=== PATIENT | female | born 1965 | race Caucasian/White ===

== ENCOUNTER 2022-05-19 09:28 | Inpatient (IN) | payer BC, OTHER ==
[~2022-05-19] VITALS: Ht 147.3 cm; Wt 67.6 kg
--- NOTE | 2022-05-19 01:21 | NUR ---
JAMAICAN SPEAKING PATIENT AOX4. NO COMPLAINTS OF PAIN AT THIS TIME. ROOM AIR. STABLE NURSING WILL MONITOR FOR CHANGES. CALL LIGHT WITHIN REACH BED AT LOWEST POSITION. [id number]
[~2022-05-19 09:28] MED LIST: VAS10 PO; [UNRECOGNIZED DRUG - CODE] PO
[2022-05-19 09:42] VITALS: BP 205/125
--- NOTE | 2022-05-19 09:50 | NUR ---
PT BACK TO LOBBY, NO OPEN ROOMS, REPORTS HX OF HTN, DOES NOT TAKE ANY MEDS
[2022-05-19] MEDS ORDERED: hydrALAZINE 10 MG TAB PO ONE (10:40)
[2022-05-19] MEDS ORDERED: ACETAMINOPHEN 325 MG TAB PO ONE (10:40)
[2022-05-19] MEDS ORDERED: CLONIDINE HYDROCHLORIDE 0.1 MG TAB PO ONE (10:40)
[2022-05-19] MEDS ORDERED: NACL 0.9% 1,000 ML IV SCH (10:40)
[2022-05-19 11:01] LABS: APPEARANCE,URINE CLEAR (CLEAR); BILIRUBIN,URINE NEGATIVE (NEGATIVE); BLOOD, URINE TRACE-I (NEGATIVE); COLOR,URINE YELLOW (YELLOW); LEUKOCYTE ESTERASE ,URINE NEGATIVE (NEGATIVE); NITRITE, URINE NEGATIVE (NEGATIVE); PH,URINE 6.5 (5.0-9.0); UGLUCOSE NEGATIVE (NEGATIVE)
[2022-05-19 11:16] LABS: BASOPHILS % (AUTO) 0.2 % (0.0-2.0); EOSINOPHILS % (AUTO) 0.2 % (0.0-4.0); HEMATOCRIT 43.4 % (36-48); HEMOGLOBIN 14.8 g/dL (12.0-16.0); LYMPHOCYTES % (AUTO) 16.3 % (20.5-51.1); MEAN CORPUSCULAR HEMOGLOBIN 29 pg (27-31); MEAN CORPUSCULAR HGB CONC 34 g/dL (33-37); MEAN CORPUSCULAR VOLUME 84.3 fL (80-94); MONOCYTES # (AUTO) 0.9 K/uL (0.8-1.0); NEUTROPHILS # (AUTO) 14.5 K/uL (1.8-7.7); NEUTROPHILS % (AUTO) 78.3 % (42.2-75.2); PLATELET COUNT (AUTO) 312 K/uL (140-450); RED BLOOD CELL COUNT(AUTO) 5.14 MIL/uL (4.20-5.40); RED CELL DISTRIBUTION WIDTH 14.1 % (11.6-13.7); WHITE BLOOD COUNT (AUTO) 18.5 K/uL (4.8-10.8)
[2022-05-19 11:29] LABS: RBC,URINE 0-5 /HPF (0-5)
[2022-05-19 11:30] LABS: TRICHOMONAS,URINE None Seen /HPF (None Seen); YEAST,URINE None Seen /HPF (None Seen)
[2022-05-19 11:35] LABS: ALBUMIN 4.1 g/dL (3.4-5.0); ANION GAP 16.6 (8-16); CREATININE 0.8 mg/dL (0.6-1.3); TOTAL BILIRUBIN 0.4 mg/dL (0.0-1.0)
--- NOTE | 2022-05-19 11:37 | NUR ---
57 Y/O FEMALE BIB SELF C/O LOWER ABD PAIN, NAUSEA, VOMITING 1 EPISODE, HEADACHE, DIZZINESS [id number] ALLERGY: PCN PMH: HTN, HDL
[2022-05-19 11:38] LABS: POTASSIUM 2.6 mmol/L (3.5-5.1)
[2022-05-19] MEDS ORDERED: KCL 20 MEQ/WATER INJ PREMIX 200 ML IV ONE (12:10)
[2022-05-19] MEDS ORDERED: hydrALAZINE 20 MG/ML VIAL IVP ONE (12:25)
[2022-05-19] MEDS ORDERED: MORPHINE SULFATE 4 MG/ML SYR IVP ONE (12:45)
--- NOTE | 2022-05-19 13:28 | NUR ---
600 CC OF FLUID EMESIS NOTED IN EMESIS BAG. NO BLOOD NOTED
[2022-05-19] MEDS ORDERED: ONDANSETRON 4 MG/2 ML VIAL IVP ONE (13:35)
[2022-05-19] MEDS ORDERED: metroNIDAZOLE 500 MG/NS PREMIX 100 ML IV ONE (14:05)
[2022-05-19] MEDS ORDERED: ENAL-197 PO (14:29)
[2022-05-19] MEDS ORDERED: MOT200 PO (14:29)
[2022-05-19] MEDS ORDERED: LEVOFLOXACIN 750 MG/D5W PREMIX 150 ML IV ONE (14:30)
[2022-05-19] MEDS ORDERED: ACETAMINOPHEN 325 MG TAB PO PRN (14:50)
[2022-05-19] MEDS ORDERED: MORPHINE SULFATE 2 MG/ML SYR IVP PRN (14:50)
[2022-05-19] MEDS ORDERED: ONDANSETRON 4 MG/2 ML VIAL IVP PRN ×2 (14:50→17:10)
[2022-05-19] MEDS ORDERED: LORazepam 2 MG/ML VIAL IVP PRN (14:50)
[2022-05-19] MEDS: NACL 0.9% 1,000 ML IV SCH (15:01)
--- NOTE | 2022-05-19 15:54 | NUR ---
pt. taken to surgery by OR nurses via stretcher. pt. is aaox4, calm and cooperative, verbally responsive, and no signs of distress. Julieth handed off to OR nurse. pt. belongings sent with pt. Addendum: 05/19/22 at 1557 by [id number] pt. handed off, report given and taken to surgery by OR nurses via stretcher. pt. is aaox4, calm and cooperative, verbally responsive, and no signs of distress. Julieth handed off to OR nurse. pt. belongings sent with pt.
[2022-05-19] MEDS ORDERED: BUPIVACAINE-MPF/EPI 0.5% 30 ML VIAL INJ ONE (15:59)
[2022-05-19] MEDS ORDERED: LIDOCAINE 1% 500 MG/50 ML VIAL ONE (15:59)
[2022-05-19] MEDS ORDERED: HYDROmorphone 1 MG/ML AMP IVP PRN ×2 (17:10→18:10)
[2022-05-19] MEDS ORDERED: LEVOFLOXACIN IV ONE (17:13)
[2022-05-19] MEDS ORDERED: SUGAMMADEX SODIUM 200 MG/2 ML VIAL IV ONE ×2 (17:13→17:57)
[2022-05-19] MEDS ORDERED: ONDANSETRON 4 MG/2 ML VIAL ONE ×3 (17:13→17:28)
[2022-05-19] MEDS ORDERED: DEXAMETHASONE 4 MG/ML VIAL ONE ×2 (17:13→17:28)
[2022-05-19] MEDS ORDERED: DEXTROSE 5% IV ONE (17:13)
[2022-05-19] MEDS ORDERED: SUCCINYLCHOLINE CHLORIDE 200 MG/10 ML VIAL IVP ONE ×2 (17:13→17:28)
[2022-05-19] MEDS ORDERED: DESFLURANE 240 ML BTL INH ONE (17:13)
[2022-05-19] MEDS ORDERED: ROCURONIUM 50 MG/5 ML VIAL IV ONE ×2 (17:13→17:28)
[2022-05-19] MEDS ORDERED: PROPOFOL 200 MG/20 ML VIAL IV ONE ×2 (17:13→17:29)
[2022-05-19] MEDS ORDERED: fentaNYL citrate 0.05 MG/ML VIAL ONE ×2 (17:13→17:23)
[2022-05-19] MEDS ORDERED: KETOROLAC 30 MG/ML VIAL ONE ×2 (17:13→17:28)
[2022-05-19] MEDS ORDERED: POTASSIUM CHL 20 MEQ/NACL 0.9% 1,000 ML IV ONE (17:51)
[2022-05-19] MEDS ORDERED: HYDROcodone/APAP 5/325 MG 1 TAB TAB PO PRN (18:10)
--- NOTE | 2022-05-19 18:50 | NUR ---
RECIEVED REPORT FROM OR NURSE. PT STABLE ON TRANSPORT.
--- NOTE | 2022-05-19 19:05 | NUR ---
ENDORSED PT TO SENIOR [employer] SYSTEMS PROGRAMMER FOR CONTINUITY OF CARE. PT STABLE.
[2022-05-19 19:25] LABS: ANION GAP 13.3 (8-16); CREATININE 0.6 mg/dL (0.6-1.3); POTASSIUM 4.3 mmol/L (3.5-5.1)
--- NOTE | 2022-05-19 23:22 | NUR ---
PATIENT IS STABLE AT THIS TIME. DENIES ANY PAIN/DISCOMFORT. [email or web address]
[2022-05-20] VITALS: BP 104/64
[2022-05-20] MEDS: NACL 0.9% 1,000 ML IV SCH ×2 (00:56→10:50)
[2022-05-20 04:00] VITALS: BP 124/59
[2022-05-20 06:56] LABS: BASOPHILS % (AUTO) 0.3 % (0.0-2.0); HEMATOCRIT 39.7 % (36-48); HEMOGLOBIN 13.2 g/dL (12.0-16.0); LYMPHOCYTES # (AUTO) 0.9 K/uL (2.5-16.5); MEAN CORPUSCULAR HEMOGLOBIN 29 pg (27-31); MEAN CORPUSCULAR HGB CONC 33 g/dL (33-37); MEAN CORPUSCULAR VOLUME 85.9 fL (80-94); MONOCYTES # (AUTO) 0.8 K/uL (0.8-1.0); MONOCYTES % (AUTO) 4.9 % (1.7-9.3); NEUTROPHILS # (AUTO) 14.9 K/uL (1.8-7.7); PLATELET COUNT (AUTO) 271 K/uL (140-450); RED BLOOD CELL COUNT(AUTO) 4.62 MIL/uL (4.20-5.40); RED CELL DISTRIBUTION WIDTH 14.5 % (11.6-13.7); WHITE BLOOD COUNT (AUTO) 16.6 K/uL (4.8-10.8)
--- NOTE | 2022-05-20 07:00 | NUR ---
ENDORSED TO ANNALISE PENA, PATIENT WAS STABLE DURING SHIFT REPORT. [email or web address]
--- NOTE | 2022-05-20 07:15 | NUR ---
RECEIVED REPORT FROM OUTCOMES ANALYST NURSE FOR CONTINUITY OF ARE. PT IS STABLE.
[2022-05-20 07:17] LABS: ALBUMIN 3.3 g/dL (3.4-5.0); ANION GAP 14.8 (8-16); CARBON DIOXIDE 26.7 mmol/L (21-32); CREATININE 0.7 mg/dL (0.6-1.3); POTASSIUM 4.5 mmol/L (3.5-5.1); TOTAL BILIRUBIN 0.6 mg/dL (0.0-1.0)
[2022-05-20 08:00] VITALS: BP 116/70
[2022-05-20 08:05] LABS: LYMPHOCYTES % (AUTO) 5.2 % (20.5-51.1); NEUTROPHILS % (AUTO) 89.6 % (42.2-75.2)
--- NOTE | 2022-05-20 09:06 | NUR ---
PATIENT HAS BEEN SCREENED AND CATEGORIZED LOW NUTRITION RISK. PATIENT WILL BE SEEN WITHIN 7 DAYS OF ADMISSION. 05/19/22-05/26/[address]
[2022-05-20 12:00] VITALS: BP 117/68
[2022-05-20 16:00] VITALS: BP 114/66
--- NOTE | 2022-05-20 19:15 | NUR ---
ENDORSED PT TO NETWORK SUPPORT ANALYST FOR CONTINUITY OF CARE. PT STABLE.
--- NOTE | 2022-05-20 19:16 | NUR ---
RECEIVED PT FROM MORNING SHIFT NURSE. PT IS AOX4, HUNGARIAN SPEAKING, AMBULATORY, ABLE TO VERBALIZE NEEDS AND ABLE TO FOLLOW COMMANDS. PT IS ON ROOM AIR AND ON CARDIAC DIET. PT HAS IV ON LEFT AC GAUGE 20, SALINE LOCK. PT DENIES PAIN AT THIS TIME. NO S/S OF RESPIRATORY DISTRESS NOTED. PT SKIN IS INTACT EXCEPT FOR ABDOMINAL SURGICAL INCISION. ALL SAFETY MEASURES IMPLEMENTED. BED IN LOW POSITION, BED WHEELS ON LOCK AND CALL LIGHT WITHIN REACH.
[2022-05-20 20:00] VITALS: BP 132/79
--- NOTE | 2022-05-20 22:00 | NUR ---
PT WAS WATCHING TV. NO COMPLAIN OF PAIN. NO S/S OF RESPIRATORY DISTRESS NOTED. ALL SAFETY MEASURES IMPLEMENTED. BED IN LOW POSITION, BED WHEELS ON LOCK AND CALL LIGHT WITHIN REACH.
[2022-05-21] VITALS: BP 122/68
--- NOTE | 2022-05-21 | NUR ---
PT WAS GIVEN WARM BLANKET. CHEST RISE AND FALL SYMMETRICALLY NOTED. RESPIRATION IS EVEN AND UNLABORED. ALL SAFETY MEASURES IMPLEMENTED. BED IN LOW POSITION, BED WHEELS ON LOCK AND CALL LIGHT WITHIN REACH.
--- NOTE | 2022-05-21 02:00 | NUR ---
PT IS SLEEPING. CHEST RISE AND FALL SYMMETRICALLY NOTED. RESPIRATION IS EVEN AND UNLABORED. ALL SAFETY MEASURES IMPLEMENTED. BED IN LOW POSITION, BED WHEELS ON LOCK AND CALL LIGHT WITHIN REACH.
[2022-05-21 04:00] VITALS: BP 119/77
--- NOTE | 2022-05-21 04:00 | NUR ---
CHECKED THE PT, STILL SLEEPING. CHEST RISE AND FALL SYMMETRICALLY NOTED. RESPIRATION IS EVEN AND UNLABORED. ALL SAFETY MEASURES IMPLEMENTED. BED IN LOW POSITION, BED WHEELS ON LOCK AND CALL LIGHT WITHIN REACH.
--- NOTE | 2022-05-21 07:24 | NUR ---
PT IS STABLE. ENDORSED PT TO MORNING SHIFT NURSE FOR CONTINUITY OF CARE.
--- NOTE | 2022-05-21 07:24 | NUR ---
RECE[facility]ED REPORT FROM [facility] GALINDO FOR CONTINUITY OF CARE. PT IN STABLE CONDITION, NO SIGNS OF PAIN OR DISTRESS AT THIS TIME.
[2022-05-21 08:00] VITALS: BP 126/61
--- NOTE | 2022-05-21 08:07 | NUR ---
ENDORSED PT DAYSHIFT NURSE JIMY FOR CONTINUITY OF CARE. PT IN STABLE CONDITION.
[2022-05-21 10:48] LABS: BASOPHILS % (AUTO) 0.4 % (0.0-2.0); EOSINOPHILS % (AUTO) 0.4 % (0.0-4.0); HEMATOCRIT 40.5 % (36-48); HEMOGLOBIN 13.5 g/dL (12.0-16.0); LYMPHOCYTES # (AUTO) 2.3 K/uL (2.5-16.5); LYMPHOCYTES % (AUTO) 17.7 % (20.5-51.1); MEAN CORPUSCULAR HEMOGLOBIN 29 pg (27-31); MEAN CORPUSCULAR HGB CONC 33 g/dL (33-37); MEAN CORPUSCULAR VOLUME 86.6 fL (80-94); MONOCYTES # (AUTO) 0.8 K/uL (0.8-1.0); MONOCYTES % (AUTO) 6.3 % (1.7-9.3); NEUTROPHILS # (AUTO) 9.6 K/uL (1.8-7.7); NEUTROPHILS % (AUTO) 75.2 % (42.2-75.2); PLATELET COUNT (AUTO) 237 K/uL (140-450); RED BLOOD CELL COUNT(AUTO) 4.68 MIL/uL (4.20-5.40); RED CELL DISTRIBUTION WIDTH 14.8 % (11.6-13.7); WHITE BLOOD COUNT (AUTO) 12.8 K/uL (4.8-10.8)
[2022-05-21 12:00] VITALS: BP 126/57
[2022-05-21 16:00] VITALS: BP 156/63
--- NOTE | 2022-05-21 18:25 | NUR ---
DISCHARGE INSTRUCTIONS COMPLETED, PATIENT AND FAMILY VERBALIZED UNDERSTANDING. PAPER WORK READY AND SIGNED AND GIVEN TO PATIENT. #20 LEFT AC WAS DISCONTINUED, catheter was intact, bleeding stopped and bandage applies. pATIENT IN A STABLE CONDITION VIA WHEELCHAIR WAS TAKING TO THE WAITING AREA ACCOMPANIED BY HIS FAMILY TO GO HOME.
== END 2022-05-21 18:05 | disposition home or self-care (01) | DRG 227 ==
LOC: MED 09:28 → MTU 16:07
PROVIDERS: ADMIT Hospitalist; ATTEND Hospitalist
PROC: 0DBU0ZZ Excision of Omentum, Open Approach (ICD-10-PCS; 2022-05-19)
PROC: 0WUF0JZ Supplement Abdominal Wall with Synthetic Substitute, Open Approach (ICD-10-PCS; principal; 2022-05-19 15:30)
DX: K43.6 Other and unspecified ventral hernia with obstruction, without gangrene (principal); E83.51 Hypocalcemia; D72.829 Elevated white blood cell count, unspecified; I95.9 Hypotension, unspecified; E78.5 Hyperlipidemia, unspecified; I10 Essential (primary) hypertension; K59.00 Constipation, unspecified; E87.6 Hypokalemia; Z20.822 Contact with and (suspected) exposure to COVID-19; Z88.0 Allergy status to penicillin
CPT/HCPCS: 36415; 71045; 80048; 80053; 81001; 83690; 85025; 87040; 87081; 87086; 88302; 93005; 96374; 96375; 99285; C1781; J0330; J0360; J1100; J1885; J1956; J2001; J2270; J2405; J2704; J3010; J3480; J3490; J7030

== ENCOUNTER 2022-05-23 23:50 | Emergency (ER) | payer BC, OTHER ==
[~2022-05-23] VITALS: Ht 149.9 cm; Wt 86.2 kg
[~2022-05-23 23:50] MED LIST changes: +ENAL-197 PO; +MOT200 PO
--- NOTE | 2022-05-23 23:56 | NUR ---
CALLED TO TRIAGE, NO ANSWER
[2022-05-23 23:57] VITALS: BP 122/92
--- NOTE | 2022-05-24 00:29 | NUR ---
Patient taken to bed 9.
--- NOTE | 2022-05-24 01:00 | NUR ---
pt ambulated to restroom
--- NOTE | 2022-05-24 01:20 | NUR ---
pt back to room
--- NOTE | 2022-05-24 02:06 | NUR ---
Patient being evaluated by physician at bedside.
--- NOTE | 2022-05-24 02:30 | NUR ---
pt ambulated to restroom
--- NOTE | 2022-05-24 02:37 | NUR ---
pt back to room from restroom
[2022-05-24] MEDS ORDERED: MIRABULK PO (02:38)
[2022-05-24] MEDS ORDERED: MAGN296S48 PO (02:38)
--- NOTE | 2022-05-24 02:45 | NUR ---
Patient discharged with v/s stable. Written and verbal after care instructions given and explained. Patient alert, oriented and verbalized understanding of instructions. Ambulatory with steady gait. All questions addressed prior to discharge. ID band removed. Patient advised to follow up with PMD. Rx of magnesium citrate, polyethylene Glycol 3350, given. Opportunity to ask questions provided and answered.
== END 2022-05-24 02:45 | disposition home or self-care (01) ==
LOC: MED 23:50
DX: K59.00 Constipation, unspecified (principal); I10 Essential (primary) hypertension; Z88.0 Allergy status to penicillin; Z79.899 Other long term (current) drug therapy; Z98.890 Other specified postprocedural states
CPT/HCPCS: 99282

== ENCOUNTER 2022-09-07 13:52 | Observation (INO) | payer OTHER ==
[~2022-09-07] VITALS: Ht 157.5 cm; Wt 71.7 kg
[~2022-09-07 13:52] MED LIST changes: +MAGN296S48 PO; +MIRABULK PO
[2022-09-07 14:04] VITALS: BP 232/122
[2022-09-07 14:56] LABS: APPEARANCE,URINE CLEAR (CLEAR); BILIRUBIN,URINE NEGATIVE (NEGATIVE); BLOOD, URINE TRACE-I (NEGATIVE); COLOR,URINE YELLOW (YELLOW); LEUKOCYTE ESTERASE ,URINE NEGATIVE (NEGATIVE); NITRITE, URINE NEGATIVE (NEGATIVE); UGLUCOSE NEGATIVE (NEGATIVE)
[2022-09-07 14:58] LABS: BASOPHILS # (AUTO) 0.1 K/uL (0.00-0.22); BASOPHILS % (AUTO) 0.4 % (0.0-2.0); EOSINOPHILS # (AUTO) 0.1 K/uL (0-0.4); EOSINOPHILS % (AUTO) 0.4 % (0.0-4.0); HEMATOCRIT 44.5 % (36-48); HEMOGLOBIN 14.9 g/dL (12.0-16.0); LYMPHOCYTES # (AUTO) 3.8 K/uL (2.5-16.5); LYMPHOCYTES % (AUTO) 25.1 % (20.5-51.1); MEAN CORPUSCULAR HEMOGLOBIN 29 pg (27-31); MEAN CORPUSCULAR HGB CONC 33 g/dL (33-37); MEAN CORPUSCULAR VOLUME 88.1 fL (80-94); MONOCYTES % (AUTO) 6.2 % (1.7-9.3); NEUTROPHILS # (AUTO) 10.4 K/uL (1.8-7.7); NEUTROPHILS % (AUTO) 67.9 % (42.2-75.2); PLATELET COUNT (AUTO) 312 K/uL (140-450); RED BLOOD CELL COUNT(AUTO) 5.05 MIL/uL (4.20-5.40); RED CELL DISTRIBUTION WIDTH 14.9 % (11.6-13.7); WHITE BLOOD COUNT (AUTO) 15.3 K/uL (4.8-10.8)
[2022-09-07 15:12] LABS: ANION GAP 15.1 (8-16); CARBON DIOXIDE 24.5 mmol/L (21-32); CREATININE 0.8 mg/dL (0.6-1.3); TOTAL BILIRUBIN 0.4 mg/dL (0.0-1.0)
[2022-09-07 15:14] LABS: POTASSIUM 2.6 mmol/L (3.5-5.1)
--- NOTE | 2022-09-07 15:14 | NUR ---
PT C/O HIGH BLOOD PRESSURE TAKEN AT HOME, SR X 3 DAYS. SAFETY MAINTAINED. HX: HTN, CHOLESTEROL, PRE-DIABETIC MEDS: LISINOPRIIL 5MG ALLERGIES: PCN
[2022-09-07 15:28] LABS: WBC,URINE 0-5 /HPF (0-5)
[2022-09-07] MEDS ORDERED: POTASSIUM CHL 40 MEQ/ D5-1/2NS 1,000 ML IV ONE (15:55)
[2022-09-07] MEDS ORDERED: POTASSIUM CHLORIDE 10 MEQ TABER PO ONE ×2 (15:55→16:57)
[2022-09-07] MEDS ORDERED: KCL 20 MEQ IN 100 mL PREMIX 200 ML IV ONE ×2 (16:55→16:58)
--- NOTE | 2022-09-07 17:30 | NUR ---
krider infusing per order. pt nsr on monitor. nad. safety maintained.
--- NOTE | 2022-09-07 18:59 | NUR ---
swabbed for covid and sent to lab.
[2022-09-07] MEDS ORDERED: ONDANSETRON 4 MG/2 ML VIAL IVP PRN (19:05)
[2022-09-07] MEDS ORDERED: KCL 20 MEQ IN 100 mL PREMIX 200 ML IV PRN (19:05)
[2022-09-07] MEDS ORDERED: KCL 20 MEQ IN 100 mL PREMIX 100 ML IV ONE (19:05)
[2022-09-07] MEDS ORDERED: HYDROcodone/APAP 5/325 MG 1 TAB TAB PO PRN (19:05)
[2022-09-07] MEDS ORDERED: MAGNESIUM OXIDE 400 MG TAB PO PRN (19:05)
[2022-09-07] MEDS ORDERED: POTASSIUM CHLORIDE 10 MEQ TABER PO PRN (19:05)
[2022-09-07] MEDS ORDERED: ACETAMINOPHEN 325 MG TAB PO PRN (19:05)
[2022-09-07] MEDS ORDERED: MORPHINE SULFATE 2 MG/ML SYR IVP PRN (19:05)
--- NOTE | 2022-09-07 19:17 | NUR ---
pt is sitting up in bed, reports 3/10 chest and neck pain that is tolerable for pt. all needs met at this time. bed locked in lowest position, side rails x1 for safety.
[2022-09-07] MEDS: NACL 0.9% 1,000 ML IV SCH (19:27)
--- NOTE | 2022-09-07 19:32 | NUR ---
pharmacy called for clairfication of dr.wu kvng states to d/c medication.
--- NOTE | 2022-09-07 20:18 | NUR ---
Patient will be admitted to care of . Admited to TELE. Will go to [id number]. Belongings list completed. Report to BECKY SEE.
--- NOTE | 2022-09-07 20:28 | NUR ---
ADMITTED PATIENT TO [facility] UNIT FROM ER VIA [facility] AWAKE ALERT ORIENTED X4 WITH THE CC: LEFT LOWER QUADRANT PAIN. DX: INTRACTABLE ABDOMINAL PAIN, HYPOKALEMIA AND DEHYDRATION. NO ACUTE DISTRESS. ON ROOM AIR. AMBULATORY. WHEELS OF BED LOCKED IN LOW POSITION. CALL LIGHT ON EASY REACH. IRISH SPEAKING. MRSA SCREENING DONE. WILL CONTINUE TO MONITOR PT.
--- NOTE | 2022-09-07 21:19 | NUR ---
HEPARIN ADMINISTERED ORDERED.
[2022-09-08] VITALS: BP 161/83
[2022-09-08 04:00] VITALS: BP 158/89
[2022-09-08 06:48] LABS: BASOPHILS % (AUTO) 0.3 % (0.0-2.0); EOSINOPHILS # (AUTO) 0.1 K/uL (0-0.4); EOSINOPHILS % (AUTO) 0.7 % (0.0-4.0); HEMATOCRIT 41.1 % (36-48); HEMOGLOBIN 13.7 g/dL (12.0-16.0); LYMPHOCYTES # (AUTO) 2.2 K/uL (2.5-16.5); LYMPHOCYTES % (AUTO) 17.7 % (20.5-51.1); MEAN CORPUSCULAR HEMOGLOBIN 30 pg (27-31); MEAN CORPUSCULAR HGB CONC 33 g/dL (33-37); MEAN CORPUSCULAR VOLUME 88.4 fL (80-94); MONOCYTES % (AUTO) 8.3 % (1.7-9.3); NEUTROPHILS # (AUTO) 8.9 K/uL (1.8-7.7); PLATELET COUNT (AUTO) 263 K/uL (140-450); RED BLOOD CELL COUNT(AUTO) 4.65 MIL/uL (4.20-5.40); RED CELL DISTRIBUTION WIDTH 14.6 % (11.6-13.7); WHITE BLOOD COUNT (AUTO) 12.2 K/uL (4.8-10.8)
[2022-09-08 06:52] LABS: CARBON DIOXIDE 26.6 mmol/L (21-32); CREATININE 0.7 mg/dL (0.6-1.3); POTASSIUM 3.6 mmol/L (3.5-5.1)
--- NOTE | 2022-09-08 07:19 | NUR ---
GAVE REPORT TO MORNING NURSE FOR CONTINUITY OF CARE. PATIENT STABLE.
[2022-09-08] MEDS: NACL 0.9% 1,000 ML IV SCH (07:35)
--- NOTE | 2022-09-08 07:49 | NUR ---
PATIENT HAS BEEN SCREENED AND CATEGORIZED LOW NUTRITION RISK. PATIENT WILL BE SEEN WITHIN 7 DAYS OF ADMISSION. 09/14/[address]
[2022-09-08 08:00] VITALS: BP 142/79
[2022-09-08] MEDS ORDERED: DOCUSATE SODIUM 100 MG GELCAP PO SCH (09:00)
[2022-09-08 12:00] VITALS: BP 121/81
[2022-09-08 12:20] VITALS: BP 142/79
== END 2022-09-08 12:50 | disposition home or self-care (01) ==
LOC: MED 13:52 → MMU 19:03 → MTU 20:12
PROVIDERS: ADMIT Student in an Organized Health Care Education/Training Program; ATTEND Student in an Organized Health Care Education/Training Program
DX: K29.00 Acute gastritis without bleeding (principal); Z20.822 Contact with and (suspected) exposure to COVID-19; E87.6 Hypokalemia; E86.1 Hypovolemia; I10 Essential (primary) hypertension; Z88.0 Allergy status to penicillin; Z79.899 Other long term (current) drug therapy
CPT/HCPCS: 36415; 74177; 80048; 80053; 81001; 83690; 85025; 87426; 96365; 96366; 96372; 99285; G0378; J1644; J3480; Q9967